=== PATIENT | female | born 1955 | race Asian ===

== ENCOUNTER 2021-01-17 11:31 | Outpatient (CLI) | payer MEDICARE ==
--- NOTE | 2021-01-17 12:33 | Mammography Report ---
DIGITAL SCREENING MAMMOGRAM WITH CAD, 01/17/2021 CLINICAL INFORMATION / INDICATION: Routine screening mammography. TECHNIQUE: Digital bilateral 2D mammography was obtained in the craniocaudal and mediolateral obliqu e projections. This examination was interpreted with the benefit of Computer-Aided Detection analysis . COMPARISON: 03/06/2016 FINDINGS: Breast Density: There are scattered areas of fibroglandular density. No dominant mass, suspicious calcifications, or architectural distortion in the right breast. In the anterior aspect of the left breast lower inner quadrant at approximately 7:30, 6 cm from the n ipple, a new 6 mm nodule is seen. Other nodularity of the left is stable. IMPRESSION: New nodule on the left Follow up recommendation: Left breast ultrasound BI-RADS Category 0: Incomplete. Needs additional imaging evaluation and/or prior mammograms for william hart. A "normal" or negative report should not discourage follow up or biopsy of a clinically significant f inding. A written summary of these findings will be mailed to the patient. The patient will be entered into a mammography reporting system which will generate a reminder letter for the patient's next appointmen t at the appropriate interval. The [employer] recommends yearly mammograms starting at age 40 and continuing as l ra as a woman is in good health. Breast MRI is recommended for women with an approximate 20-25% or greater lifetime risk of breast cancer, including women with a strong family history of breast or ova dorys cancer or who have been treated for Hodgkin's disease. Signer Name: Dequan Xiao MD Signed: 01/17/2021 12:28 PM Workstation Name: [email or web address]
== END 2021-01-17 11:32 | disposition home or self-care (01) ==
LOC: SPVWC 11:31
PROVIDERS: ATTEND Obstetrics & Gynecology
DX: Z12.31 Encounter for screening mammogram for malignant neoplasm of breast (principal); N63.24 Unspecified lump in the left breast, lower inner quadrant
CPT/HCPCS: 77067

== ENCOUNTER 2021-01-25 09:18 | Outpatient (CLI) | payer MEDICARE ==
--- NOTE | 2021-01-25 10:32 | Ultrasound Report ---
LEFT BREAST ULTRASOUND LIMITED INDICATION: Finding noted in the left breast on the recent screening mammogram. COMPARISON: 01/17/2021. FINDINGS: Targeted ultrasound focused in the left lower inner breast was performed to evaluate the si te of a previously noted finding which was seen on the recent screening mammogram. There is a partial ly circumscribed oval hypoechoic 6 x 3 x 11 mm lesion located at the 7:00 position, 6 cm from the nip ple. This would appear to correspond with the mammographic finding seen on the recent screening mammo gram. IMPRESSION: Left breast lesion at the 7:00 position for which ultrasound-guided core biopsy is recommended. Atten tion to the location of biopsy marker is recommended on the post procedure mammograms to ensure that this finding corresponds with the initial finding seen on the recent screening mammogram. BI-RADS Category 4: Suspicious for Malignancy. Signer Name: Jay Mesa MD Signed: 01/25/2021 10:28 AM Workstation Name: [id number]
== END 2021-01-25 09:19 | disposition home or self-care (01) ==
LOC: US 09:18
PROVIDERS: ATTEND Obstetrics & Gynecology
DX: N64.89 Other specified disorders of breast (principal)

== ENCOUNTER 2021-02-28 12:36 | Outpatient (CLI) | payer MEDICARE ==
--- NOTE | 2021-02-28 14:23 | Ultrasound Report ---
ULTRASOUND BREAST LEFT LIMITED, 02/28/2021 CLINICAL INFORMATION / INDICATION: The patient has a history of abnormal screening mammogram with a c ircumscribed oval mass in the left breast at the 7:00 position. She presents for ultrasound-guided bi opsy. TECHNIQUE: Targeted ultrasound evaluation was performed of the area of interest. COMPARISON: Screening mammogram, 01/17/2021. Left breast ultrasound, 01/25/2021. FINDINGS: Despite extensive sonographic evaluation, the oval circumscribed hypoechoic nodule at the 7:00 positi on is unable to be reproduced for biopsy. No suspicious solid mass or shadowing is visualized. IMPRESSION: 1. The circumscribed oval mass at the 7:00 position was unable to be reproduced for biopsy. Review of recent mammogram and ultrasound demonstrates this may have represented a cyst which has resolved sin ce the patient's previous visit. No suspicious sonographic or mammographic finding is identified. The refore, biopsy was not performed. Recommend a 6 month follow-up left mammogram and ultrasound to conf irm this impression. Findings and recommendations were discussed with the patient at the time of her visit and she is in a greement with the plan of management. Follow up recommendation: Short term follow up in 6 months. BI-RADS Category 3: Probably Benign. Followup in 6 months. A normal or "negative" report should not preclude biopsy or follow-up of a clinically suspicious find ing. Signer Name: Nusrat Candelaria MD Signed: 02/28/2021 2:14 PM Workstation Name: [id number]
== END 2021-02-28 12:37 | disposition home or self-care (01) ==
LOC: SPVWC 12:36
PROVIDERS: ATTEND Surgery
DX: R92.8 Other abnormal and inconclusive findings on diagnostic imaging of breast (principal)